=== PATIENT | female | born 1950 | race Caucasian/White ===

== ENCOUNTER 2017-04-28 02:20 | Emergency (ER) | payer OTHER ==
[~2017-04-28] VITALS: Ht 157.5 cm; Wt 48.7 kg
[2017-04-28 02:28] VITALS: BP 163/74; PULSE 82; RESP 14; TEMP 98.1; O2SAT 97
[2017-04-28] MEDS ORDERED: AUGM875T3 PO (05:37)
--- NOTE | 2017-04-28 05:37 | PD ---
HPI Chief Complaint: Bite or Sting Time Seen by Provider: 05:38 Travel History International Travel<30 days: No Contact w/Intl Traveler<30days: No Traveled to known affect area: No History of Present Illness HPI 66-year-old female presents to the emergency room for injury to the right forearm. This evening prior to arrival to the emergency department the patient was bitten by her cat on her right forearm. Patient is right-handed. Patient states the cat is her own cat current on immunizations. Patient states that there is no other injury. No distal numbness tingling or weakness or paresthesias of the digits. Patient has intact range of motion of the digits. Patient denies any prior injury to the right forearm. Patient's tetanus status is current. Patient is not diabetic. Patient states the cat is 4 years old and does not believe there is any foreign body does not believe any bony injury. The patient rates her pain for over 10 in intensity. PFSH Past Medical History Narrative Medical Negative past medical history negative surgical history occasional alcohol use nursing notes reviewed Medical History: Denies Significant Hx Diminished Hearing: No Tetanus Vaccination: < 5 Years Influenza Vaccination: No Social History Alcohol Use: Yes (Wine nightly) Tobacco Use: No Substance Use: No Allergies-Medications (Allergen,Severity, Reaction): Coded Allergies: No Known Allergies (Unverified , 04/28/17) Reported Meds & Prescriptions Reported Meds & Active Scripts Active Augmentin (Amoxicillin-Clavulanate) 875-125 Mg Tab 1 Tab PO BID 10 Days Review of Systems Except as stated in HPI: all other systems reviewed are Neg Physical Exam Narrative GENERAL: Well-developed well-nourished female in acute distress no respiratory distress SKIN: Warm and dry. Focused exam dorsal aspect of mid right forearm 2 puncture wounds no drainage scant bruising mild tenderness to palpation no bony tenderness. MUSCULOSKELETAL: No cyanosis, or edema. Attention right upper extremity right forearm 2 puncture wounds to the dorsum of the right forearm and drainage scant bruising mild tenderness to palpation no deformity distally extremity is neurovascular tendon intact repairer helper strength is 5 over 5. Apposition intact capillary refill is brisk and less than 2 seconds per digit sensory exam is intact patient is neurovascular tendon intact this range of motion is intact. Radial pulses 2+ to palpation. Data Data Last Documented VS Vital Signs Date Time Temp Pulse Resp B/P (MAP) Pulse Ox O2 Delivery O2 Flow Rate FiO2 9/10/17 02:28 98.1 82 14 163/74 (103) 97 MDM Medical Decision Making Medical Screen Exam Complete: Yes Emergency Medical Condition: Yes Medical Record Reviewed: Yes Differential Diagnosis animal bite, puncture wound, retained foreign body, fracture Narrative Course Discussed with patient imaging study and patient declines; tetanus status is current; one site was cleansed; patient given first dose of oral antibiotic Augmentin 875 Diagnosis Primary Impression: Cat bite of right forearm Qualified Codes: S51.851A - Open bite of right forearm, initial encounter; W55.01XA - Bitten by cat, initial encounter Referrals: Primary Care Physician 2 days Patient Instructions: General Instructions Additional Instructions: Keep site clean and dry Complete course of antibiotic as prescribed Follow-up with primary care provider emergency department 2 days for wound check Return to the emergency room for pain fever ascending redness arm pit lymph nodes or tenderness drainage from the puncture wounds or any concerns May take ibuprofen/Advil/Motrin per package instructions as needed for pain associated with inflammation or for fever 100.4F or greater May take acetaminophen/Tylenol as needed for fever 100.4F or greater. Med/Other Pt SpecificInfo: Prescription(s) given Scripts Amoxicillin-Clavulanate (Augmentin) 875-125 Mg Tab 1 TAB PO BID for Infection for 10 Days, TAB 0 Refills Prov: Abby Macias MD 04/28/17 Disposition: 01 DISCHARGE HOME Condition: Stable Abby Macias MD Apr 28, 2017 05:37
[2017-04-28] MEDS ORDERED: AMOXICILLIN/CLAVULANATE K 875 MG TAB PO ONE (06:00)
[2017-04-28] MEDS: IBUPROFEN 400 MG TAB PO ONE (06:00)
[2017-04-28 06:10] VITALS: BP 159/77
== END 2017-04-28 06:12 | disposition home or self-care (01) ==
LOC: PHED 02:20 → PHEFT 06:12
DX: S51.851A Open bite of right forearm, initial encounter (principal); W55.01XA Bitten by cat, initial encounter
CPT/HCPCS: 99283